=== PATIENT | male | born 1965 | race Caucasian/White ===

== ENCOUNTER 2019-01-04 14:45 | Emergency (ER) | payer BC ==
[2019-01-04 15:05] VITALS: BP 154/96
[2019-01-04] MEDS: Diphtheria,Pertussis(Acell),Tetanus Vaccine 0.5 ML SDV IM ONE (15:31)
[2019-01-04] MEDS: Silver Sulfadiazine 1% Crm 20 GM Tube TOP ONE (17:25)
[2019-01-04] MEDS: Bacitracin Oint 1 GM U/D Packet TOP ONE (17:26)
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
== END 2019-01-04 18:12 | disposition home or self-care (01) ==
LOC: LL.ED 14:45
DX: T20.212A Burn of second degree of left ear [any part, except ear drum], initial encounter (principal); T23.202A Burn of second degree of left hand, unspecified site, initial encounter; T20.20XA Burn of second degree of head, face, and neck, unspecified site, initial encounter; T20.25XA Burn of second degree of scalp [any part], initial encounter; T22.112A Burn of first degree of left forearm, initial encounter; Z23 Encounter for immunization; X08.8XXA Exposure to other specified smoke, fire and flames, initial encounter; Y92.009 Unspecified place in unspecified non-institutional (private) residence as the place of occurrence of the external cause
CPT/HCPCS: 90471; 90715; 99283; A9270-GY